=== PATIENT | female | born 1970 | race Caucasian/White ===

== ENCOUNTER 2017-07-06 06:24 | Inpatient (IN) ==
[2017-07-06] MEDS ORDERED: Albuterol 2.5 MG/3 ML NEBULIZER IH ONE (06:40)
[2017-07-06] MEDS ORDERED: Ertapenem 1,000 MG in 0.9 % Sodium Chloride Mini Bag 100 ML IVPB ONE (07:00)
[2017-07-06] MEDS ORDERED: Scopolamine Patch 1.5 MG PATCH.TD72 TD ONE (07:06)
[2017-07-06] MEDS ORDERED: Pregabalin 75 MG CAPSULE PO ONE (07:06)
[2017-07-06] MEDS ORDERED: *HR* Methadone 10 MG TABLET PO ONE (07:07)
[2017-07-06] MEDS ORDERED: Famotidine 20 MG/2 ML VIAL IVP ONE (07:11)
--- NOTE | 2017-07-06 07:13 | Anesthesia Evaluation PreOp ---
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: Denies Any Significant HX Other Medical History: Bleeding, GERD, Other (Colon CA , post XRT & chemo) Anesthesia History: No Prior Anesthetic Complications, Past Anesthesia (Colon CA , bladder resection, ureteral repair, uro-pouch) Alcohol Use: none Drug use: none Medications and Allergies Cholecalciferol (D-3) [Vitamin D] 1,000 unit PO DAILY 07/06/17 [History] Cyanocobalamin (B-12) [Vitamin B12] 1,000 mcg SQ MO 07/06/17 [History] Esomeprazole Magnesium [Nexium] 40 mg PO DAILY 07/06/17 [History] Gabapentin [Neurontin] 400 mg PO TID 07/06/17 [History] 3 Allergy/AdvReac Type Severity Reaction Status Date / Time No Known Allergies Allergy Verified 07/06/17 07:08 - Meds/Allergy Pre-op Review Medications Reviewed: Yes Allergies Reviewed: Yes Beta Blockers on Current Med List: No Anesthesia Results - Labs Laboratory Tests 06/30/17 06/30/17 12:13 12:13 Hgb 16.2 H Hct 48.7 H Plt Count 279 Sodium 139 Potassium 3.5 Chloride 108 H Carbon Dioxide 26 BUN 15 Creatinine 1.06 Anesthesia Exam O2 Sat Height 1.63 m Height 1.63 m Height 1.63 m Weight 78.925 kg Weight 78.925 kg Weight 78.925 kg O2 Sat by Pulse Oximetry 100 O2 Sat by Pulse Oximetry 100 Vital Signs Temp Pulse Resp BP Pulse Ox 98.0 F 72 18 143/98 100 07/06/17 06:42 07/06/17 06:42 07/06/17 06:42 07/06/17 06:42 07/06/17 06:42 NPO (# of Hours): >8 - HEENT Teeth: Edentulous Denture Type: Upper: Complete - Cardiac Rhythm: Regular - Pulmonary Breath Sounds: bilateral Rhonchi Anesthesia Assess/Plan ASA Score: 2 Modified Ellsworth Scale for Level of Consciousness: Cooperative, oriented, and tranquil Anesthetic Plan: General, Regional (Possible TAP block) Monitoring Plan: Standard Monitors, CVC (Possible) Recovery Plan: PACU Anes Supervising Prov Stmt: Patient informed and consented. Risks, benefits, and alternatives discussed. Patient wishes to proceed.
[2017-07-06] MEDS ORDERED: Lidocaine -MPF 1% 2 ML VIAL ONE (07:14)
[2017-07-06] MEDS: Ringers Solution, Lactated 1,000 ML IVC SCH ×4 (07:21→21:55)
--- NOTE | 2017-07-06 07:32 | History & Physical Report ---
Date of Encounter: 07/06/17 Time of Encounter: 07:25 24 Hour HP Update - Instructions Instructions: If the History and Physical is less than 30 days old and was completed prior to A.M. admission and or procedure and has NOT been updated on calendar day of procedure please complete this update prior to performing procedure. - Update Patient reports changes in Medical Condition: No Changes in examination, assessment, or condition: No Changes in Medication: No Preop tests/diagnostics Reviewed: Yes Surgery Remains Indicated: Yes Consent for Planned Operative Procedure(s) Verified: Yes - Pre-Operative Checklist Preoperative Checklist Indicated: Yes Prophylactic Antibiotic Ordered: Yes Home Medications Include Beta Chema: No Beta Chema Taken Today (Day of Surgery): No Beta Chema Taken Yesterday (Day Prior to Surgery): No Is VTE Prophylaxis Indicated?: Yes
[2017-07-06] MEDS ORDERED: *HR* HYDROmorphone 2 MG/ML SYRINGE ONE (08:45)
[2017-07-06] MEDS ORDERED: *HR* Propofol 200 MG/20 ML VIAL IVP ONE (08:49)
[2017-07-06] MEDS ORDERED: *HR* Remifentanil 1 MG VIAL IVP ONE (08:49)
[2017-07-06] MEDS ORDERED: Lidocaine -MPF 2% 2 ML VIAL ONE (08:49)
[2017-07-06] MEDS ORDERED: *HR* Succinylcholine 200 MG/10 ML VIAL IVP ONE (08:49)
[2017-07-06] MEDS ORDERED: *HR* FentaNYL (PF) 100 MCG/2 ML VIAL ONE ×3 (08:49→08:50)
[2017-07-06] MEDS ORDERED: *HR* Midazolam HCl 2 MG/2 ML VIAL ONE (08:50)
[2017-07-06] MEDS ORDERED: *HR* Rocuronium Bromide 50 MG/5 ML VIAL ONE (08:54)
[2017-07-06] MEDS ORDERED: Ondansetron 4 MG/2 ML VIAL ONE (08:54)
[2017-07-06] MEDS ORDERED: Dexamethasone 4 MG/ML VIAL ONE (08:54)
[2017-07-06] MEDS ORDERED: *HR* Metoprolol 5 MG/5 ML VIAL IVP ONE (09:00)
[2017-07-06] MEDS ORDERED: Neostigmine Methylsulfate 3 MG/3 ML SYRINGE ONE (11:06)
[2017-07-06] MEDS ORDERED: Bupivacaine/Clonidine Syringe 1 EACH SYRINGE ONE (11:15)
[2017-07-06] MEDS ORDERED: Acetaminophen 325 MG TABLET PO PRN (11:49)
[2017-07-06] MEDS ORDERED: *HR* HYDROmorphone 20 MG/20 ML PCA IVC PRN (11:53)
--- NOTE | 2017-07-06 11:57 | Operative Note ---
Date of procedure: 07/06/17 Pre-op diagnosis: Parastomal hernia Post-op diagnosis: same Procedure: Exploratory celiotomy, extended lysis of adhesions for approximately 90 minutes ; repair of parastomal hernia with biologic mesh, revision and colostomy Implants: Bard XenMatrix 10 x 15 cm Surgical Graft Complications: incidental enterotomy during lysis of adhesions - suture repair without spillage Anesthesia: GETA Surgeon: Maycol Palm Was there an machine assistant present: No Yarn Inspector Other: SHANNON Brito Estimated blood loss (cc): 400 Specimen: segment end colostomy Condition: stable Disposition: PACU Procedure in Detail: The patient was brought to the operating room and placed supine on the operating table. The patient was appropriately identified as to person and procedure. The accuracy of this information was confirmed by the patient and procedure team. The patient was then intubated and anesthetized under the supervision of . The abdomen was prepped and draped in the usual sterile fashion. An Ioban adhesive drape was applied to the anterior abdominal wall. This effectively isolated the ileal conduit in the right lower quadrant as well as the end colostomy left side of the abdomen. A midline incision was made from xiphoid to umbilicus. The dissection was extended through the subcutaneous tissue. Bleeding points controlled with electrocautery. The fascia was incised along the linea alba. On entering the abdominal cavity I immediately encountered brisk bleeding which was controlled with suture ligatures. It also became apparent that the adherent loop of small bowel had also been entered. The small bowel was mobilized, the enterotomy along the antimesenteric border was closed transversely using interrupted 3-0 silk followed by 2 applications of an Ethicon TX 30 mm stapler using JOYCE archie ( blue cartridge). There was no spillage of bowel contents. A fairly lengthy, extended lysis of adhesions,requiring approx 90 minutes was necessary to expose the parastomal hernia. Approaching from the intraperitoneal direction I was unable to distinguish between the end colostomy with its mesentery as well as the prolapsing small bowel and colon described on previous CT. I opted to incise the mucocutaneous margin of the end colostomy and dissect into the subcutaneous tissue. Approaching the parastomal hernia from both directions, I was able to identify the prolapsing small bowel and omentum, effectively reducing both. There was no bowel involvement at the time of this surgery. Ostomy was notably redundant in the subcutaneous tissue this would allow me to revise and shorten the segment standings through the abdominal wall. A 10 cm x 15 cm Bard XenMatrix Biologic graft was selected to repair the parastomal hernia. A keyhole was cut into the graft. The graft was introduced peritoneally and placed around the end colostomy. The slot of the keyhole was closed with interrupted 3-0 silk. The graft was secured to the anterior abdominal wall with interrupted #2 Monosoft suture passed through the anterior abdominal wall, through the graft, and back through the anterior abdominal wall. 2 such sutures were placed, one cephalad and one caudal to the colostomy stoma. The abdomen was checked for adequate hemostasis. A pulmonary sponge count was obtained and found to be accurate. The fascia of the midline layer was closed with interrupted [id number] 0 Vicryl. The subcutaneous tissue was approximated with running 3-0 Vicryl. The skin edges approximated with archie. A dry sterile dressing was applied. The end colostomy was then revised. Approximately 6 cm of end descending colon was resected. The colostomy was then matured placing 4 corner interrupted vertical mattress 3-0 chromic followed by interrupted 3-0 chromic to approximate the colon mucosa to the anterior abdominal skin. A colostomy appliance was placed. The patient was taken to recovery in stable condition. Needle, sponge, and instrument counts were correct at the close of the case.
--- NOTE | 2017-07-06 12:00 | Anesthesia Procedures ---
Date of Encounter: 07/06/17 Time of Encounter: 11:57 Procedures: Anesthesia - Nerve Block Procedure Date: 07/06/17 Time: 11:40 Allergies/Adv Reactions: morphine, tramadol Pre-op Diagnosis: Parastomal hernia colostomy Surgical Procedure: Exploratory celiotomy, KEENAN, Repair of parastomal hernia Checklist: Correct Patient Identifier, Correct procedure, History checked Correct side: Right Blood Thinner: No Monitor Applied: EKG, BP, Pulse Oximetry Indication: Post Op Analgesia Pre-op Neuro Deficits: No Block Type: Other (bilateral mid-axillary TAP block) Catheter placed: No Sterile Technique: Yes Ultrasound used: Yes Anatomy identified: Yes Visual spread of Local: Yes Neuro Stimulation: No Blood on Needle Aspiration: No Smooth Injection of Local: Yes Pain with Injection of Local: No Prep: Chlorhexadine Needle: 21 x 100 mm Stimuplex Local: 0.25% Bupivicaine w/Clonidine 20 mcg/cc Volume (cc): 40 Number of Attempts: 1 Complications: None/effective block Vitals: please see anesthesia record
[2017-07-06] MEDS ORDERED: *HR* OxyCODONE Immed Rel 5 MG TABLET PO PRN (12:02)
[2017-07-06] MEDS ORDERED: Ondansetron 4 MG/2 ML VIAL IVP PRN (12:02)
--- NOTE | 2017-07-06 12:51 | Anesthesia Evaluation Post Op ---
Date of Encounter: 07/06/17 Time of Encounter: 12:50 - Vital Signs Vital Signs: Vital Signs/O2 Sat/Glucose, Most Current Temp Pulse Resp BP Pulse Ox 07/06/17 12:35 97.4 F L 59 16 124/71 96 07/06/17 12:25 65 16 116/71 98 07/06/17 12:15 69 22 132/90 100 07/06/17 12:05 97.8 F 74 16 154/103 100 - Lungs Lungs: Clear Ascult./Percussion - Airway Airway: Non-obstructed - Cardiovascular Regular Rate - Mental Status Mental Status: Alert & Oriented, Answers Appropriately - Pain Pain Scale: 0 - Nausea Vomiting Nausea Vomiting: Not Present - Hydration Hydration: NPO - Discharge PostOp Status: Transfer Patient to floor
[2017-07-06] MEDS: Albuterol 2.5 MG/3 ML NEBULIZER IH SCH ×3 (16:07→20:05)
[2017-07-07] MEDS: Albuterol 2.5 MG/3 ML NEBULIZER IH SCH ×6 (03:48→19:43)
[2017-07-07 05:34] LABS: Basophils % 0.3 %; Eosinophils # 0.1 K/mcL (0.0-0.6); Eosinophils % 0.5 %; Hematocrit 41.3 % (35.3-44.9); Immature Granulocytes % 0.8 % (0-4); Lymphocytes # 1.6 K/mcL (0.6-4.6); Lymphocytes % 14.5 %; Mean Corpuscular HGB Conc 33.4 g/dL (31.6-35.5); Mean Corpuscular Hemoglobin 30.4 pg (28.0-33.3); Mean Platelet Volume 11.3 fL (9.4-12.4); Monocytes % 8.8 %; Neutrophils # 8.5 K/mcL (1.6-8.9); Nucleated Red Blood Cells 0.2 /100 WBC (0); Platelet Count 147 K/mcL (140-400); Red Blood Count 4.54 M/mcL (3.82-4.97); Red Cell Distribution Width 13.6 % (11.5-14.5); Segmented Neutrophils % 75.1 %
[2017-07-07 05:56] LABS: Hemoglobin 13.8 g/dL (11.5-15.4)
[2017-07-07 06:07] LABS: BUN/Creatinine Ratio 19 (6-26); Blood Urea Nitrogen 19 mg/dL (6-20); Calcium 8.6 mg/dL (8.6-10.3); Carbon Dioxide 22 mEq/L (23-29); Chloride 112 mEq/L (98-107); Glucose 126 mg/dL (70-105); Osmolality,Calculated 294 (280-300); Potassium 4.3 mEq/L (3.5-5.1); Sodium 140 mEq/L (136-145); eGFR For African Americans > 60 (> 60); eGFR For Non-African Americans 59 (> 60)
[2017-07-07] MEDS ORDERED: Ertapenem 1,000 MG in 0.9 % Sodium Chloride Mini Bag 100 ML IVPB SCH (09:00)
[2017-07-07] MEDS: Pantoprazole 40 MG VIAL IVP SCH (10:15)
[2017-07-07] MEDS: Ringers Solution, Lactated 1,000 ML IVC SCH (10:26)
--- NOTE | 2017-07-07 11:18 | General Surgery Progress Note ---
Date of Encounter: 07/07/17 Time of Encounter: 11:18 Subjective Patient reports: still having pain Narrative: General Surgery - POD #1 Patient complaining of pain; though pain is controlled by CONTACT CENTER CONSULTANT. Maximum temperature 99.2; pulse volume my exam 105, respirations 17, SPO2 94% blood pressure 119/76. Patient tolerating clear liquids, no nausea or vomiting. No flatus or BM. Lungs: Bilateral posterior rales and rhonchi; weak, ineffective cough; poor inspiratory effort, approximately 500 mL on incentive manometry Abdomen: Soft with active bowel sounds; midline incision clean and dry. Colostomy left side appears viable but no output Urostomy right lower quadrant intact with urine output approximately 700 mL since midnight Laboratories: White count 11.3 with normal differential; hemoglobin 13.8, hematocrit 1.3. Electrolytes notable for sodium 140, potassium 4.3 chloride of 112, bicarbonate 22, BUN is stable at 19, creatinine stable at 1.02 Impression/Plan: Postoperative day #1 - acceptable postoperative status. Incisional pain as expected due to the prolonged exploratory celiotomy, lysis of adhesions. Poor inspiratory effort - patient encouraged to ambulate, increase the frequency of incentive spirometry with greater inspiratory effort Mild hypoxia due to this poor inspiratory effort and long-term history of smoking. Continue Proventil aerosols ` Objective Vital Signs - Last 8 Hours Temp Pulse Resp BP Pulse Ox 07/07/17 10:38 99.2 F 89 17 119/76 96 07/07/17 07:50 16 96 07/07/17 06:49 98.9 F 76 16 130/82 94 07/07/17 03:48 16 95 07/07/17 03:43 98.7 F 98 16 116/79 96 Intake and Output 07/06/17 07/07/17 07/07/17 23:59 07:59 15:59 Intake Total 0 / 0 0 / 0 1360 / 1360 Output Total 500 / 500 450 / 450 250 / 250 Balance -500 / -500 -450 / -450 1110 / 1110 Intake: IV Fluids 1000 / 1000 Lactated Ringers 1,000 ML @ 80 1000 / 1000 mls/hr IVC .[id number] [facility] Rx#: [id number] Oral 0 / 0 0 / 0 360 / 360 Output: Urine 0 / 0 Stool 0 / 0 0 / 0 Urostomy 500 / 500 450 / 450 250 / 250 Other: Meal Breakfast Weight 79.2 kg Patient Weight 07/07/17 23:59 Weight 79.2 kg - Labs 07/07/17 05:08 07/07/17 05:08 Diabetes panel 07/07/17 Range/Units 05:08 Sodium 140 (136-145) mEq/L Potassium 4.3 (3.5-5.1) mEq/L Chloride 112 H (98-107) mEq/L Carbon Dioxide 22 L (23-29) mEq/L BUN 19 (6-20) mg/dL Creatinine 1.02 (0.60-1.20) mg/dL Glucose 126 H (70-105) mg/dL Calcium 8.6 (8.6-10.3) mg/dL Calcium panel 07/07/17 Range/Units 05:08 Calcium 8.6 (8.6-10.3) mg/dL Pituitary panel 07/07/17 Range/Units 05:08 Sodium 140 (136-145) mEq/L Potassium 4.3 (3.5-5.1) mEq/L Chloride 112 H (98-107) mEq/L Carbon Dioxide 22 L (23-29) mEq/L BUN 19 (6-20) mg/dL Creatinine 1.02 (0.60-1.20) mg/dL Glucose 126 H (70-105) mg/dL Calcium 8.6 (8.6-10.3) mg/dL Adrenal panel 07/07/17 Range/Units 05:08 Sodium 140 (136-145) mEq/L Potassium 4.3 (3.5-5.1) mEq/L Chloride 112 H (98-107) mEq/L Carbon Dioxide 22 L (23-29) mEq/L BUN 19 (6-20) mg/dL Creatinine 1.02 (0.60-1.20) mg/dL Glucose 126 H (70-105) mg/dL Calcium 8.6 (8.6-10.3) mg/dL - VTE Documentation of Mechanical Device: Intermittent pneumatic compression device Consult Discharge Plan - Plan Referrals: Maycol Palm MD [Non-Partnered Physician] -
[2017-07-07] MEDS ORDERED: *HR* HYDROmorphone 20 MG/20 ML PCA IVC PRN (11:29)
[2017-07-07] MEDS ORDERED: Ringers Solution, Lactated 1,000 ML IVC SCH (11:30)
[2017-07-08] MEDS: Albuterol 2.5 MG/3 ML NEBULIZER IH SCH ×6 (00:10→20:11)
[2017-07-08] MEDS: MetroNIDAZOLE 500 MG/100 ML 500 MG/100 ML BAG IVPB SCH ×3 (00:20→17:47)
[2017-07-08] MEDS: Pantoprazole 40 MG VIAL IVP SCH (10:18)
[2017-07-08] MEDS ORDERED: Ringers Solution, Lactated 1,000 ML IVC SCH (16:47)
--- NOTE | 2017-07-08 16:47 | General Surgery Progress Note ---
Date of Encounter: 07/08/17 Time of Encounter: 16:15 Subjective Patient reports: feels better, still having pain Narrative: General Surgery - POD #2 Nursing reports patient "had a good day". She has been out of bed and ambulatory. Patient indicates she is feeling better, she is still complaining of pain. Patient is currently afebrile, 98.4; maximum temperature 99.7 last evening; heart rate 93; respirations 16, blood pressure 131/83. SPO2 on 2 L nasal cannula 98%. Patient continues to require supplemental oxygen to maintain saturations greater than 95%. Lungs: Clear bilaterally; better inspiratory effort; basis now clear Abdomen: Soft, active bowel sounds. Incisional tenderness as expected. Midline incision is clean and dry. Active bowel sounds, no detected rebound or peritoneal signs. Colostomy evident left anterior abdomen appears healthy though no output of flatus or BM noted. Urine output: 1650 mL for calendar day 07/07/17; 1100 mL so far today. Pathology pending Impression: Postoperative day #2, status post exploratory celiotomy with extended lysis of adhesions; repair of parastomal hernia with biologic mesh Acceptable postoperative status. Plan: Advance to full liquids Maintain CHRO Dilaudid for pain control - will likely initiate oral narcotic analgesics in a.m. Check CBC and basic metabolic profile in a.m. Continue IV antibiotics (Cipro and metronidazole) due to the enterotomy during surgery. Objective Vital Signs - Last 8 Hours Temp Pulse Resp BP Pulse Ox 07/08/17 15:26 16 98 07/08/17 15:07 98.4 F 93 18 131/83 96 07/08/17 11:03 98.1 F 85 18 112/74 95 Intake and Output 07/08/17 07/08/17 07/08/17 07:59 15:59 23:59 Intake Total 220 / 220 240 / 240 Output Total 700 / 700 400 / 400 Balance -480 / -480 -160 / -160 Intake: IV Fluids 100 / 100 Flagyl Premix 500 MG/100 ML 500 100 / 100 mg In 100 ml @ 100 mls/hr IVPB Q8HR [facility] Rx#:[id number] Oral 120 / 120 240 / 240 Output: Urine 0 / 0 Urostomy 700 / 700 400 / 400 Other: Meal Lunch - Labs 07/07/17 05:08 07/07/17 05:08 - VTE Documentation of Mechanical Device: Intermittent pneumatic compression device Consult Discharge Plan - Plan Referrals: Maycol Palm MD [Non-Partnered Physician] -
[2017-07-09] MEDS: MetroNIDAZOLE 500 MG/100 ML 500 MG/100 ML BAG IVPB SCH ×2 (00:08→09:30)
[2017-07-09] MEDS: Albuterol 2.5 MG/3 ML NEBULIZER IH SCH ×7 (00:24→23:12)
[2017-07-09 05:32] LABS: Basophils % 0.3 %; Eosinophils # 0.2 K/mcL (0.0-0.6); Eosinophils % 2.3 %; Immature Granulocytes % 0.4 % (0-4); Lymphocytes # 1.3 K/mcL (0.6-4.6); Lymphocytes % 16.4 %; Mean Corpuscular HGB Conc 32.8 g/dL (31.6-35.5); Mean Corpuscular Hemoglobin 30.4 pg (28.0-33.3); Mean Corpuscular Volume 92.7 fL (83.0-100.0); Mean Platelet Volume 10.3 fL (9.4-12.4); Monocytes # 0.5 K/mcL (0.0-1.3); Monocytes % 6.2 %; Neutrophils # 5.9 K/mcL (1.6-8.9); Platelet Count 198 K/mcL (140-400); Red Blood Count 3.13 M/mcL (3.82-4.97); Red Cell Distribution Width 13.6 % (11.5-14.5); Segmented Neutrophils % 74.4 %
[2017-07-09 05:35] LABS: Hemoglobin 9.5 g/dL (11.5-15.4)
[2017-07-09 05:52] LABS: BUN/Creatinine Ratio 14 (6-26); Blood Urea Nitrogen 11 mg/dL (6-20); Calcium 8.2 mg/dL (8.6-10.3); Carbon Dioxide 30 mEq/L (23-29); Chloride 103 mEq/L (98-107); Glucose 115 mg/dL (70-105); Osmolality,Calculated 286 (280-300); Potassium 3.3 mEq/L (3.5-5.1); Sodium 138 mEq/L (136-145); eGFR For African Americans > 60 (> 60); eGFR For Non-African Americans > 60 (> 60)
[2017-07-09] MEDS: Pantoprazole 40 MG VIAL IVP SCH (09:32)
--- NOTE | 2017-07-09 09:44 | General Surgery Progress Note ---
Date of Encounter: 07/09/17 Time of Encounter: 09:35 Subjective Patient reports: feels better, still having pain, pain is less, tolerating liquids well Narrative: General Surgery - POD #3 Afebrile, currently 98.5, pulse 92, respirations 16, blood pressure 121/80. SPO2 on 2 L/m nasal cannula 96%. Lungs: Clear; inspiratory effort still on a generating about 1000 mL. This was discussed with the patient with strong recommendations to increase her respiratory effort Abdomen: Soft, active bowel sounds. Colostomy appears viable and is digitally patent however copious hard stool was evident within the stoma Incision is intact and appears to be healing well. No obvious peritoneal signs or rebound. Urine output: 1600 mL for calendar day 07/08/17; 850 mL so far today. Labs: White count 7.9, hemoglobin has fallen to 9.5 with hematocrit 29.0 - this is likely due to the intraoperative blood loss is as well as the continued administration of perioperative fluids electrolytes, BUN, creatinine within normal limits, potassium is 403.3, again likely due to IV fluids; Bicarb 30. Impression: Postoperative day 3, status post exploratory celiotomy with extended lysis of adhesions and repair of parastomal hernia. Acceptable postoperative status. Patient continues to complain of pain but clinically her pain has diminished. 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 Objective Vital Signs - Last 8 Hours Temp Pulse Resp BP Pulse Ox 07/09/17 08:37 98.5 F 92 16 121/80 96 07/09/17 08:27 16 92 07/09/17 05:00 18 98 07/09/17 03:44 98.5 F 82 17 116/73 99 Intake and Output 07/08/17 07/09/17 07/09/17 23:59 07:59 15:59 Intake Total 300 / 300 100 / 100 440 / 440 Output Total 500 / 500 550 / 550 300 / 300 Balance -200 / -200 -450 / -450 140 / 140 Intake: IV Fluids 300 / 300 100 / 100 200 / 200 Cipro Premix 400 MG/200 ML 400 200 / 200 200 / 200 mg In 200 ml @ 200 mls/hr IVPB Q12HR [facility] Rx#:[id number] Flagyl Premix 500 MG/100 ML 500 100 / 100 100 / 100 mg In 100 ml @ 100 mls/hr IVPB Q8HR [facility] Rx#:[id number] Oral 0 / 0 240 / 240 Output: Urostomy 500 / 500 550 / 550 300 / 300 Other: Weight 87.5 kg Patient Weight 07/09/17 23:59 Weight 87.5 kg - Labs 07/09/17 05:15 07/09/17 05:15 Diabetes panel 07/09/17 Range/Units 05:15 Sodium 138 (136-145) mEq/L Potassium 3.3 L (3.5-5.1) mEq/L Chloride 103 (98-107) mEq/L Carbon Dioxide 30 H (23-29) mEq/L BUN 11 (6-20) mg/dL Creatinine 0.78 (0.60-1.20) mg/dL Glucose 115 H (70-105) mg/dL Calcium 8.2 L (8.6-10.3) mg/dL Calcium panel 07/09/17 Range/Units 05:15 Calcium 8.2 L (8.6-10.3) mg/dL Pituitary panel 07/09/17 Range/Units 05:15 Sodium 138 (136-145) mEq/L Potassium 3.3 L (3.5-5.1) mEq/L Chloride 103 (98-107) mEq/L Carbon Dioxide 30 H (23-29) mEq/L BUN 11 (6-20) mg/dL Creatinine 0.78 (0.60-1.20) mg/dL Glucose 115 H (70-105) mg/dL Calcium 8.2 L (8.6-10.3) mg/dL Adrenal panel 07/09/17 Range/Units 05:15 Sodium 138 (136-145) mEq/L Potassium 3.3 L (3.5-5.1) mEq/L Chloride 103 (98-107) mEq/L Carbon Dioxide 30 H (23-29) mEq/L BUN 11 (6-20) mg/dL Creatinine 0.78 (0.60-1.20) mg/dL Glucose 115 H (70-105) mg/dL Calcium 8.2 L (8.6-10.3) mg/dL - VTE Documentation of Mechanical Device: Intermittent pneumatic compression device Consult Discharge Plan - Plan Referrals: Maycol Palm MD [Non-Partnered Physician] -
[2017-07-09] MEDS: *HR* OxyCODONE/APAP 5/325 TABLET PO PRN ×2 (10:45→15:08)
[2017-07-09] MEDS: *HR* OxyCODONE Immed Rel 5 MG TABLET PO PRN ×2 (12:08→18:18)
[2017-07-09] MEDS: metroNIDAZOLE 500 MG TABLET PO SCH ×2 (15:08→19:59)
[2017-07-09] MEDS: *HR* OxyCODONE/APAP 10/325 TABLET PO PRN ×2 (16:20→20:40)
[2017-07-10] MEDS: *HR* OxyCODONE/APAP 10/325 TABLET PO PRN ×5 (01:08→23:06)
[2017-07-10] MEDS: Albuterol 2.5 MG/3 ML NEBULIZER IH SCH ×6 (03:47→23:53)
[2017-07-10] MEDS: *HR* OxyCODONE Immed Rel 5 MG TABLET PO PRN ×2 (05:45→14:37)
[2017-07-10 05:50] LABS: Hematocrit 29.5 % (35.3-44.9); Hemoglobin 9.7 g/dL (11.5-15.4)
[2017-07-10] MEDS: metroNIDAZOLE 500 MG TABLET PO SCH ×3 (07:38→20:00)
[2017-07-10] MEDS ORDERED: Ondansetron 4 MG/2 ML VIAL IVP PRN (11:09)
[2017-07-10] MEDS ORDERED: *HR* Promethazine 25 MG/ML VIAL IVP PRN (11:09)
--- NOTE | 2017-07-10 11:20 | General Surgery Progress Note ---
Date of Encounter: 07/10/17 Time of Encounter: 11:11 Subjective Narrative: General Surgery - POD #4 Patient continues to complain of pain - Percocet 5/325 described to provide inadequate pain relief - increased to Percocet 10/325. Patient is also complaining of nausea but no emesis. Patient remains afebrile, currently 98.1, pulse 75, respirations 16, blood pressure 109/71. SPO2 on room air 93%. No longer requires supplemental oxygen Lungs: Clear, no obvious abdominal pain and deep inspiration Cardiac: Regular rate, no appreciable murmur Abdomen: Soft, incisional pain as before but no obvious progression or increase in the abdominal findings. No significant distention. No peritoneal findings or rebound. Active bowel sounds. Midline incision, clean and dry. Stoma left anterior abdominal wall - healthy but no output; colostomy irrigation yesterday yielded a moderate amount of hard stool. Urine output: 1750 mL for calendar day 07/09/17; 950 mL so far today Laboratories: Hemoglobin 9.7, hematocrit 29.5 (slightly improved as patient mobilizes the jaiden operative fluids) Pathology: The revised stoma/end colostomy still pending Impression/Plan: Postoperative day 4 - status post exploratory celiotomy with extended lysis of adhesions and repair of parastomal hernia using biologic mass Persistent c/o abdominal/incisional pain; patient requiring large amounts narcotic analgesics; no clinical findings peritoneal s/s or rebound. Constipation and slow return bowel function exacerbated by narcotic use. Anemia - due to intra operative blood losses and dilution related to jaiden operrative fluids. H&H expected to improve as fluids are mobilized. Hypokalemia - continue oral potassium. Repeat CBC, basic metabolic profile in AM Objective Vital Signs - Last 8 Hours Temp Pulse Resp BP Pulse Ox 07/10/17 07:28 98.1 F 75 16 109/71 93 07/10/17 04:01 98.4 F 83 16 109/71 93 Intake and Output 07/09/17 07/10/17 07/10/17 23:59 07:59 15:59 Intake Total 240 / 240 120 / 120 Output Total 250 / 250 950 / 950 Balance -10 / -10 -830 / -830 Intake: Oral 240 / 240 120 / 120 Output: Urostomy 250 / 250 950 / 950 Other: Meal Dinner Percent of Meal Consumed 45% Weight 86.7 kg Patient Weight 04/22/18 23:59 Weight 86.7 kg - Labs 07/10/17 05:11 07/09/17 05:15 - VTE Documentation of Mechanical Device: Intermittent pneumatic compression device Consult Discharge Plan - Plan Referrals: Maycol Palm MD [Non-Partnered Physician] -
[2017-07-10] MEDS: Ondansetron ODT 4 MG TAB.RAPDIS SL PRN ×2 (11:56→18:51)
[2017-07-11] MEDS: Albuterol 2.5 MG/3 ML NEBULIZER IH SCH ×5 (03:13→20:04)
[2017-07-11] MEDS: *HR* OxyCODONE Immed Rel 5 MG TABLET PO PRN ×2 (03:18→09:43)
[2017-07-11 05:23] LABS: Basophils % 0.3 %; Eosinophils # 0.3 K/mcL (0.0-0.6); Hematocrit 30.3 % (35.3-44.9); Hemoglobin 9.6 g/dL (11.5-15.4); Immature Granulocytes % 0.3 % (0-4); Lymphocytes # 1.2 K/mcL (0.6-4.6); Lymphocytes % 19.7 %; Mean Corpuscular HGB Conc 31.7 g/dL (31.6-35.5); Mean Corpuscular Hemoglobin 29.9 pg (28.0-33.3); Mean Corpuscular Volume 94.4 fL (83.0-100.0); Mean Platelet Volume 9.9 fL (9.4-12.4); Monocytes # 0.4 K/mcL (0.0-1.3); Monocytes % 6.8 %; Neutrophils # 4.1 K/mcL (1.6-8.9); Platelet Count 265 K/mcL (140-400); Red Blood Count 3.21 M/mcL (3.82-4.97); Red Cell Distribution Width 13.7 % (11.5-14.5); Segmented Neutrophils % 67.9 %
[2017-07-11] MEDS: *HR* OxyCODONE/APAP 10/325 TABLET PO PRN ×4 (05:23→19:52)
[2017-07-11 05:41] LABS: BUN/Creatinine Ratio 13 (6-26); Blood Urea Nitrogen 12 mg/dL (6-20); Calcium 8.3 mg/dL (8.6-10.3); Carbon Dioxide 30 mEq/L (23-29); Chloride 104 mEq/L (98-107); Glucose 102 mg/dL (70-105); Osmolality,Calculated 288 (280-300); Potassium 3.6 mEq/L (3.5-5.1); Sodium 139 mEq/L (136-145); eGFR For African Americans > 60 (> 60); eGFR For Non-African Americans > 60 (> 60)
[2017-07-11] MEDS: metroNIDAZOLE 500 MG TABLET PO SCH ×3 (08:07→21:28)
[2017-07-11] MEDS: Ondansetron ODT 4 MG TAB.RAPDIS SL PRN (08:08)
--- NOTE | 2017-07-11 12:49 | General Surgery Progress Note ---
Date of Encounter: 07/11/17 Time of Encounter: 12:44 Subjective Patient reports: still having pain, flatus Narrative: General Surgery - POD #5 Patient continues to complain of pain; no obvious worsening of the pain but also no improvement. Maximum temperature 99.0; heart rate 71-76, respirations 16, blood pressure 121/80. SPO2 on room air 91 and 94%. Lungs: Clear to auscultation; satisfactory inspiratory effort. No obvious increased abdominal pain with deep inspiration Abdomen: Soft, no obvious distention; active bowel sounds. Patient indicates passage of a large amount of flatus but no BM. Midline incision is clean and dry. No obvious peritoneal signs. No rebound. Patient tolerating diet; no complaints of nausea today, no emesis. Urine output - approximately 2700 mL in the last 24 hours. Labs: White count 6.1 with no significant differential; hemoglobin 9.6 with hematocrit 30.3. Electrolytes normal except for a bicarbonate of 30; BUN 12, creatinine 0.91. Pathology/revision of end colostomy still pending Impression: Postoperative day #5: Status post exploratory celiotomy with extended lysis of adhesions and repair of parastomal hernia Audible bowel sounds with passage of flatus but no BM. Hypokalemia corrected Anemia- stable Plan: Acute abdominal series roday repeat colostomy irrigation Objective Vital Signs - Last 8 Hours Temp Pulse Resp BP Pulse Ox 07/11/17 11:15 98.8 F 71 16 106/68 94 07/11/17 07:25 18 91 07/11/17 06:29 99.0 F 76 16 121/80 94 Intake and Output 07/10/17 07/11/17 07/11/17 23:59 07:59 15:59 Intake Total 0 / 0 0 / 0 Output Total 900 / 900 400 / 400 300 / 300 Balance -900 / -900 -400 / -400 -300 / -300 Intake: Oral 0 / 0 0 / 0 Output: Urine 0 / 0 Stool 0 / 0 0 / 0 Urostomy 900 / 900 400 / 400 300 / 300 Other: Weight 87.3 kg Patient Weight 07/11/17 23:59 Weight 87.3 kg - Labs 07/11/17 04:53 07/11/17 04:53 Diabetes panel 07/11/17 Range/Units 04:53 Sodium 139 (136-145) mEq/L Potassium 3.6 (3.5-5.1) mEq/L Chloride 104 (98-107) mEq/L Carbon Dioxide 30 H (23-29) mEq/L BUN 12 (6-20) mg/dL Creatinine 0.91 (0.60-1.20) mg/dL Glucose 102 (70-105) mg/dL Calcium 8.3 L (8.6-10.3) mg/dL Calcium panel 07/11/17 Range/Units 04:53 Calcium 8.3 L (8.6-10.3) mg/dL Pituitary panel 07/11/17 Range/Units 04:53 Sodium 139 (136-145) mEq/L Potassium 3.6 (3.5-5.1) mEq/L Chloride 104 (98-107) mEq/L Carbon Dioxide 30 H (23-29) mEq/L BUN 12 (6-20) mg/dL Creatinine 0.91 (0.60-1.20) mg/dL Glucose 102 (70-105) mg/dL Calcium 8.3 L (8.6-10.3) mg/dL Adrenal panel 07/11/17 Range/Units 04:53 Sodium 139 (136-145) mEq/L Potassium 3.6 (3.5-5.1) mEq/L Chloride 104 (98-107) mEq/L Carbon Dioxide 30 H (23-29) mEq/L BUN 12 (6-20) mg/dL Creatinine 0.91 (0.60-1.20) mg/dL Glucose 102 (70-105) mg/dL Calcium 8.3 L (8.6-10.3) mg/dL - VTE Documentation of Mechanical Device: Intermittent pneumatic compression device Consult Discharge Plan - Plan Referrals: Maycol Palm MD [Non-Partnered Physician] -
[2017-07-12] MEDS: *HR* OxyCODONE/APAP 10/325 TABLET PO PRN ×4 (00:03→13:10)
[2017-07-12] MEDS: Albuterol 2.5 MG/3 ML NEBULIZER IH SCH ×5 (00:12→16:04)
[2017-07-12] MEDS: metroNIDAZOLE 500 MG TABLET PO SCH (09:05)
[2017-07-12] MEDS: Ondansetron ODT 4 MG TAB.RAPDIS SL PRN (09:05)
[2017-07-12 10:47] VITALS: BP 103/70
--- NOTE | 2017-07-12 14:52 | General Surgery Progress Note ---
Date of Encounter: 07/12/17 Time of Encounter: 14:29 Subjective Narrative: General Surgery - POD #6 Progress Note / Discharge Summary Patient continues to complain of pain; she has remained afebrile and hemodynamically stable - 98.8, pulse 70, respirations 16, blood pressure 103/70 Lungs: Clear; bibasilar rales that clear with cough. No detected increase in abdominal pain with deep inspiration Cardiac: Regular rate, no appreciable murmurs Abdomen: Soft, persistent tenderness but no noted increase. Midline incision remains intact and healing well Stoma left anterior abdomen healthy; several large bowel movements in the last 12 hours. Acute abdominal series notable for bibasal atelectasis; no focal airspace consolidation. Bowel pattern suggestive of postoperative ileus rather than obstruction which correlates with the patient's clinical examination. 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 Patient underwent extended lysis of adhesions and repair of the parastomal hernia using biologic mesh on . 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 Throughout the patient's hospital course, she remained afebrile and hemodynamically stable. IV antibiotics were continued due to an intraoperative enterotomy and an associated increased risk of infection. Postoperative anemia, due to a combined acute intra operative blood loss and jaiden operative fluid, remained stable and is expected to resolve as patient continues to recover. The patient was discharged in good condition. Discharge instructions Regular diet Activity as tolerated, lifting limited to less than 20 pounds. Patient may ambulate/climb stairs. Patient may shower, wash incision with soap and water I have recommended fiber additives and stool softeners as dietary supplements Tylenol, Motrin, Advil, etc. as needed for pain Prescription for Percocet 5/325, #30, one every 6 hours as needed for pain not relieved by [id number] medication Follow-up in the office, 07/18/17. Patient will call office to make this appointment. Objective Vital Signs - Last 8 Hours Temp Pulse Resp BP Pulse Ox 07/12/17 10:44 98.8 F 70 16 103/70 97 07/12/17 06:40 98.1 F 73 16 115/74 96 Intake and Output 07/11/17 07/12/17 07/12/17 23:59 07:59 15:59 Intake Total 0 / 0 0 / 0 200 / 200 Output Total 600 / 600 700 / 700 0 / 0 Balance -600 / -600 -700 / -700 200 / 200 Intake: Oral 0 / 0 0 / 0 200 / 200 Output: Urine 0 / 0 Stool 350 / 350 250 / 250 0 / 0 Urostomy 250 / 250 450 / 450 0 / 0 Other: Meal Dinner Breakfast Percent of Meal Consumed 0% 5% Stool Size Moderate Stool Consistency liquid liquid liquid Stool Color Brown Brown Brown # Bowel Movements 1 Weight 84 kg Patient Weight 07/12/17 23:59 Weight 84 kg - Labs 07/11/17 04:53 07/11/17 04:53 - VTE Documentation of Mechanical Device: Intermittent pneumatic compression device Consult Discharge Plan - Plan Referrals: Maycol Palm MD [Non-Partnered Physician] -
--- NOTE | 2017-07-12 14:54 | Discharge Summary ---
Outpatient Proc Discharge Plan - Plan Additional Instructions: Regular diet Fiber supplements and stool softeners recommended Activity as tolerated; lifting limited less than 20 pounds; patient may ambulate /climb stairs The patient may shower, wash incision with soap and water Tylenol, ibuprofen, Motrin, Advil, etc. as needed for pain Prescription for Percocet 5/325, #28, one every 6 hours as needed for pain not relieved by [id number] medications Outpatient follow-up in the office - Matti patient to call office on to make this appointment Prescriptions: Oxycodone HCl/Acetaminophen [Percocet 5-325 mg Tablet] 1 each PO Q6H PRN 7 Days #28 tablet PRN Reason: Pain Home Medications: Cholecalciferol (D-3) [Vitamin D] 1,000 unit PO DAILY 07/06/17 [History] Cyanocobalamin (B-12) [Vitamin B12] 1,000 mcg SQ MO 07/06/17 [History] Esomeprazole Magnesium [Nexium] 40 mg PO DAILY 07/06/17 [History] Gabapentin [Neurontin] 400 mg PO TID 07/06/17 [History] Oxycodone HCl/Acetaminophen [Percocet 5-325 mg Tablet] 1 each PO Q6H PRN 7 Days #28 tablet 07/12/17 [Rx]
== END 2017-07-12 16:24 | disposition home or self-care (01) | DRG 336 ==
LOC: SAMDAY 06:24 → 3ANU 13:29
PROVIDERS: ADMIT Surgery; ATTEND Surgery